=== PATIENT | female | born 1935 | race Hispanic/Latino ===

== ENCOUNTER → 2017-03-28 | Outpatient (CLI) | payer MEDICARE ==
[~2017-03-28] MED LIST: AMOXICILLIN500 M1 PO; BUTALB-ACETAMI1 EACH PO; LOVASTATIN40 MG PO; MECLIZINE HCL25 MG PO; NORCO 5-325 TA1 EACH PO; OMEPRAZOLE40 MG PO; PLAVIX75 MG PO; PROAIR HFA INH8.5 GM INH; SYMBICORT 80-10.2 GM INH; TESSALON PERLE100 MG PO
--- NOTE | 2017-03-28 17:07 | Diagnostic Imaging Report ---
Exam: Lumbar spine CT without IV contrast History: Trauma, fall Comparison studies: None Technique: Axial images were obtained through the lumbar spine. Coronal and sagittal images were reconstructed from the axial data. Intravenous contrast: None Findings: Number of non-rib bearing vertebral bodies: 5 Alignment: Mild hyperlordosis at L4 with approximately 7 mm Grade 1 anterolisthesis of L4 and L5. No associated spondylolysis. Mild thoracolumbar curvature convex to the right. Soft tissues: No gross acute abnormalities. Paraspinal muscles: Unremarkable. Sacroiliac joints: No degenerative changes. Vertebrae: Age-indeterminate compression fracture of the superior L4 endplate results in approximately 40% height loss. There is subtle irregularity along the superior L4 endplate anteriorly which can be seen in the setting of a more recent fracture. No additional fractures. Approximately 3 mm retropulsion of the superior L4 endplate which contributes to only mild canal stenosis at L3-L4. Degenerative changes: L1-L2: Minimal retrolisthesis of L1 on L2 with associated uncovered disc/disc bulge and mild right facet arthrosis without significant canal or foraminal stenosis. L2-L3: Symmetric disc bulge and mild facet arthrosis do not result in significant canal or foraminal stenosis. L3-L4: Symmetric disc bulge with minimal retropulsion of the superior L4 endplate, thickened ligamentum flavum and facet arthrosis with mild canal stenosis. No significant foraminal stenosis. L4-L5: Anterolisthesis of L4 and L5 with associated uncovered disc, thickened ligamentum flavum and moderate bilateral facet arthrosis with moderate canal stenosis and narrowing of the bilateral symmetrical reticular recesses. No significant foraminal stenosis. L5-S1: Disc bulge with broad-based central disc protrusion and facet arthrosis result in mild canal stenosis and mild right foraminal stenosis. No significant left foraminal stenosis disc abuts the right S1 nerve root in the subarticular zone. Incidental findings: Moderate calcified atherosclerosis in the abdominal aorta and within its branching vessels. Mild atelectasis or scarring at the lung bases. Sigmoid colonic diverticulosis. IMPRESSION: 1. Age-indeterminate L4 superior endplate compression fracture (approximately 40% height loss) with minimal retropulsion which contributes to only mild canal stenosis at L3-L4. Subtle endplate irregularity can may indicate a more recent fracture. 2. No additional fractures. 3. Grade 1 degenerative anterolisthesis of L4 on L5 with associated moderate facet arthrosis and moderate degenerative canal stenosis at L4-5. 4. Disc bulge, disc protrusion and facet arthrosis at L5-S1 with mild canal stenosis and disc which abuts the right S1 nerve root. Lumbar spine MRI could better evaluate acuity of L4 compression fracture and could be performed as warranted. Signed by: Dr. Ramin Perry M.D. on 03/28/2017 5:03 PM
--- NOTE | 2017-03-28 19:29 | Diagnostic Imaging Report ---
Exam: Thoracic spine CT without IV contrast History: Trauma, fall, pain Comparison studies: Included thoracic spine from chest CT of 10/21/2016 Technique: Axial were obtained without IV contrast through the thoracic region. Coronal and sagittal images reconstructed from the axial data. Intravenous contrast: None Findings: Alignment: Mild increased thoracic kyphosis centered at T6. Soft tissues: No abnormalities.. Paraspinal muscles: Unremarkable Spinal cord: Can not be evaluated. Vertebrae: T6 compression fracture results in approximate 70% height loss. There is approximately 4 mm retropulsion into the spinal canal which result in mild canal stenosis. No additional thoracic spine fractures. Degenerative changes: Mild multilevel thoracic disc degeneration with minimal vacuum disc at T9-T10 and T10-T11. Mild foraminal stenosis at T6-T7 due to retropulsion of T6 due to fracture as described above. Remaining canal and foramina are patent. Included cervical spine: Moderately degenerated disks from C4 to C7. Disc osteophyte complexes at C5-C6 and at C6-C7 indent the thecal sac and result in at least mild canal stenosis. Moderate foraminal stenosis bilaterally from C4 to C7 due to uncovertebral facet arthrosis. Incidental findings: Moderate calcified atherosclerosis in the thoracic aorta. Right upper quadrant cholecystectomy clips. Scattered fibrotic changes in the lungs as seen on the previous chest CT. IMPRESSION: 1. T6 compression fracture (approximately 70% height loss) with mild retropulsion results in mild canal stenosis. Fractures not present on the previous exam of 10/21/2016 and may reflect recent fracture. 2. No additional fractures. 3. Mild degenerative changes in the thoracic spine and moderate degenerative changes in the included cervical spine as described. Thoracic and lumbar spine fractures were discussed with Dr. Haro at approximate 7:10 PM on 03/28/2017. Signed by: Dr. Ramin Perry M.D. on 03/28/2017 7:26 PM
== END ==
LOC: CT 15:51
PROVIDERS: ATTEND Family Medicine
DX: M54.05 Panniculitis affecting regions of neck and back, thoracolumbar region (principal); W19.XXXD Unspecified fall, subsequent encounter
CPT/HCPCS: 72128; 72131

== ENCOUNTER → 2017-03-30 | Outpatient (CLI) | payer MEDICARE ==
--- NOTE | 2017-03-30 14:16 | Diagnostic Imaging Report ---
EXAMINATION: MRI of the lumbar spine without contrast HISTORY: Back pain status post fall a week ago. COMPARISON: Lumbar spine CT on 03/28/2017 TECHNIQUE: Sagittal T1, T2, STIR; axial T2 and proton density. FINDINGS: It is assumed that there are 5 lumbar vertebrae. Curvature/Alignment: Normal lordosis. Unchanged grade 1 (about 6 mm) anterolisthesis at L4-L5 without spondylolysis. Subtle right-sided thoracolumbar curvature. Vertebrae: -Unchanged mild chronic compression fracture of the L4 vertebral body, with decreased vertebral body height centrally by approximately 40% due to the depression of the superior endplate, minimal posterior retropulsion of the superior endplate. -No evidence of recent fracture, infection, or neoplasm. Conus: Normal, terminating at L1 Cauda equina: Unremarkable. Lower thoracic: Unremarkable. Paraspinal soft tissues: Unremarkable. Degenerative changes: L1-L2: Minimal symmetric disc bulge without canal or foraminal stenoses L2-L3: Mild symmetric disc bulge and facet arthrosis without canal or foraminal stenoses L3-L4: Mild symmetric disc bulge and moderate facet arthrosis. No significant canal or foraminal stenoses L4-L5: Mild symmetric disc bulge, ligamenta flava thickening and facet arthrosis. Moderate spinal canal stenosis. No significant foraminal stenosis. L5-S1: Approximately 7 mm AP diameter central and right subarticular disc protrusion flattens the ventral thecal sac and mildly narrows the canal, with partial effacement of the right lateral recess, compression upon the traversing right S1 nerve root cannot be excluded. Sacroiliac joints: Unremarkable. IMPRESSION: 1. Mild chronic compression fracture of the L4 vertebral body. No acute lumbar spine fractures. 2. Again noted grade 1 degenerative spondylolisthesis at L4-L5. 3. Moderate degenerative spinal canal stenosis at L4-L5. 4. Central and right subarticular disc protrusion at L5-S1 as detailed above. Signed by: Dr. Latonia Gutierrez M.D. on 03/30/2017 2:13 PM
--- NOTE | 2017-03-30 14:45 | Diagnostic Imaging Report ---
EXAMINATION: MRI of the thoracic spine without contrast HISTORY: Back pain, status post fall a week ago. T6 fracture COMPARISON: Thoracic spine CT on 03/28/2017 TECHNIQUE: Sagittal T1 without contrast, T2, and STIR; axial T2. Coronal T2. Intravenous contrast: none FINDINGS: Curvature: Increased thoracic kyphosis. Vertebrae: -Acute compression fracture of the T6 vertebral body, with decreased vertebral body height by approximately 75 % centrally, with approximately 3 mm or posterior retropulsion. Prominent bone marrow edema is seen through the remaining vertebral body extending into the bilateral pedicles. An approximately 4 mm AP diameter left anterior epidural lesion is seen at the level of the T6 vertebral body, which may represent a small hematoma versus extruded disc fragment, which results in mild canal stenosis, without evidence of cord compression. Edema in the posterior interspinous ligament at T5-T6 and T6-T7 may be related to minimal interspinous ligament posttraumatic injury, without evidence of widening or subluxation at this level. Minimal discontinuity of the bilateral ligamenta flava is also noted. -Minimal acute compression fracture of the T2 vertebral body, with minimal depression of the superior endplate and no significant decreased vertebral body height. No significant retropulsion or canal stenosis. Discs: No significant degenerative changes in the thoracic level. Spinal canal: No mass or abnormal blood vessels. Spinal cord: Normal size and signal intensity. Foramina: Unremarkable. Paraspinal soft tissues: Unremarkable. Proximal ribs: No abnormal signal intensity. IMPRESSION: 1. Unchanged severe acute compression fracture of the T6 vertebral body with mild posterior retropulsion and T5-T6 and T6-T7 interspinous ligament posttraumatic edema. 2. Left anterior epidural possible small hematoma or disc extrusion at the level of T6 result in mild canal stenosis without cord compression. 3. Mild acute compression fracture of the T1 vertebral body without posterior retropulsion or canal stenoses. Signed by: Dr. Latonia Gutierrez M.D. on 03/30/2017 2:41 PM
== END ==
LOC: MRI 09:41
PROVIDERS: ATTEND Family Medicine
DX: S22.050A Wedge compression fracture of T5-T6 vertebra, initial encounter for closed fracture (principal); S32.040A Wedge compression fracture of fourth lumbar vertebra, initial encounter for closed fracture
CPT/HCPCS: 72146; 72148

== ENCOUNTER → 2017-04-01 | Day surgery (SDC) | payer MEDICARE, OTHER ==
[~2017-04-01] VITALS: Ht 154.9 cm; Wt 68.0 kg
[~2017-04-01] MED LIST changes: +BETAMETHASONE DISODIUM PHOS 6 MG/ML VIAL ONE; +BUPIVACAINE 0.25% 30ML SDV INJ ONE; +CEFAZOLIN SOD 1 GM VIAL ONE; +FENTANYL CITRATE/PF 100MCG/2 ML INJ ONE; +IOPAMIDOL 300MG/ML 50ML INFUS..BTL IV ONE; +LIDOCAINE HCL 2% LOCAL 20 ML VIAL ONE; +MIDAZOLAM HCL 2 MG/2 ML VIAL ONE; +SODIUM CHLORIDE 0.9% 100 ML 100 ML ONE; +SODIUM CHLORIDE 0.9% 1000ML 1,000 ML ONE; +SODIUM CHLORIDE 0.9% 500ML 500 ML ONE; +SODIUM CHLORIDE 0.9% 50ML 0 ML ONE
[2017-04-01 09:25] LABS: INR 0.95; PROTHROMBIN TIME 13.2 seconds (11.9-14.5)
[2017-04-01 09:33] LABS: ANION GAP 10.3 mmol/L (8-16); BLOOD UREA NITROGEN 12 mg/dL (7-26); BUN/CREATININE RATIO 18 (6-25); CALCIUM 9.1 mg/dL (8.4-10.2); CARBON DIOXIDE 33 mmol/L (22-29); CHLORIDE 99 mmol/L (98-107); CREATININE, SERUM 0.68 mg/dL (0.57-1.11); EST GLOMERULAR FILTRATION RATE > 60 ML/MIN (60-); GLUCOSE 99 mg/dL (74-118); POTASSIUM 4.3 mmol/L (3.5-5.1); SODIUM 138 mmol/L (136-145)
[2017-04-01 09:49] VITALS: BP 152/76
[2017-04-01 09:49] LABS: BASOPHILS % 0.1 % (0.0-1.0); EOSINOPHILS % 0.5 % (0.0-6.0); HEMATOCRIT 38.9 % (34.2-44.1); HEMOGLOBIN 12.5 g/dL (12.0-16.0); LYMPHOCYTES # (AUTO) 1.3 (1.0-3.2); LYMPHOCYTES % 16.1 % (18.0-39.1); MEAN CORPUSCULAR HGB CONC 32.1 g/dL (31-35); MONOCYTES # (AUTO) 0.8 (0.2-0.8); MONOCYTES % 10.1 % (4.4-11.3); NEUTROPHILS # (AUTO) 5.8 (2.1-6.9); NEUTROPHILS % 72.6 % (38.7-80.0); PLATELET COUNT 333 x10e3/uL (140-360); RED BLOOD COUNT 4.47 x10e6/uL (3.6-5.1); RED CELL DISTRIBUTION WIDTH 13.2 % (11.7-14.4)
[2017-04-01 13:03] VITALS: BP 111/63
--- NOTE | 2017-04-05 10:47 | Diagnostic Imaging Report ---
History:82-year-old female with severe mid back pain after fall, found to have acute T6 compression fracture failing conservative management. Comparison studies:MRI thoracic spine 03/30/2017 Procedure T6 Vertebral Augmentation Codes:43019 Percutaneous vertebral augmentation, 1 vertebral body, unilateral or bilateral cannulation, inclusive of all imaging guidance; thoracic, , , , , ,25967 Epidural steroid injection , lumbar or sacral,62282 Flouroscopic Guidance Spinal (DOMINIC),35279 Moderate Sedation provided by the same physician performing the diagnostic or therapeutic service that the sedation supports, for patients 5 years of age or older for the first 30 minutes,65912 each additional 15 minutes of intraservice time Sedation: Moderate sedation administered by interventional radiology nurse under supervision of the interventional radiologist with continuous hemodynamic monitoring for 45 minutes. Physician: Suman Gibbons MD Medications: Fentanyl 50mcg IV, Versed 1mg IV Antibiotics: Ancef 1gm IV administered by slow infusion 15 prior to start of case. Flouroscopy : 6.1 minutes Contrast: 3 ml Radiation exposure:363.8 cGycm2 Technique: Following informed written consent, patient was placed in a prone position on the angiography table. According to universal protocol, preprocedural time-out was performed with team members agreeing on patient identity, correct site and procedure to be done. The skin was clean, prepped and draped in the usual sterile fashion. [employer] images were obtained. Local and periosteal anesthesia was injected and conscious sedation was administered. Then the T6 vertebral body was accessed under fluoroscopic guidance using a right extrapedicular approach. Cavity creation was performed using an inflatable balloon tamp. Then under fluoroscopic guidance 2 cc's of [place] HV PMMA was injected into the vertebral body. No cement extravasation was seen. Needle was then removed and hemostasis was acquired by manual compression. A sterile dressing was applied. For lower back pain, epidural steroids were administered. L1-2 epidural space was accessed with a 21 gauge Tou[place] needle using an interlaminar approach under fluoroscopic guidance. Contrast was injected to confirm epidural location. Then 5cc's of Bupivacine and 2 cc's Betamethasone were injected in the epidural space. Needle was removed and sterile dressing was applied. Procedure was well tolerated and the patient remained neurologically intact and unchanged during and following the procedure. Patient reported 10/10 back pain prior to procedure and 0/10 back pain immediately following. Findings: T6 compression fracture. Post procedure imaging demonstrates bilateral distribution of PMMA without cement extravasation. Impression: 1. T6 vertebral augmentation with inflatable balloon tamp, technically and clinically successful. 2. Per PQRS criteria, patient should be screened for osteoporosis. 3. Successful fluoroscopically guided lumbar interlaminar epidural steroid injection for co-existing lower back separate from fracture related pain. Signed by: Dr. Suman Gibbons M.D. on 04/04/2017 11:13 AM
== END | disposition home or self-care (01) ==
LOC: CATH LAB 07:57 → EDSTATUS 10:30
PROVIDERS: ATTEND Radiology Vascular & Interventional Radiology
DX: M48.54XA Collapsed vertebra, not elsewhere classified, thoracic region, initial encounter for fracture (principal); J84.10 Pulmonary fibrosis, unspecified; W19.XXXA Unspecified fall, initial encounter
CPT/HCPCS: 22510; 22513; 36415; 62311; 77001; 77003; 80048; 85025; 85610; 85730; J0690; J0702; J2001; J2250; J7030; J7040; Q9967; J0720